=== PATIENT | male | born 1990 | race Caucasian/White ===

== ENCOUNTER 2017-05-06 08:09 | Emergency (ER) | payer SELFPAY ==
[~2017-05-06] VITALS: Ht 180.3 cm; Wt 68.1 kg
[2017-05-06] MEDS ORDERED: AZITHROMYCIN 250 MG TABLET PO ONE (08:45)
[2017-05-06] MEDS ORDERED: CefTRIAXone SODIUM 1 GM/VIAL IM ONE (08:45)
[2017-05-06] MEDS ORDERED: LIDOCAINE HCL/PF 1% 2 ML VIAL IM ONE (08:45)
[2017-05-06 09:35] LABS: APPEARANCE,URINE CLEAR (CLEAR); GLUCOSE, URINE (UA) NEGATIVE (NEGATIVE); KETONES,URINE NEGATIVE (NEGATIVE); LEUKOCYTE ESTERASE ,URINE SMALL (NEGATIVE); OCCULT BLOOD,URINE NEGATIVE (NEGATIVE); PH,URINE 7.5 (5.0-8.0); PROTEIN,URINE NEGATIVE (NEGATIVE)
[2017-05-06 09:36] LABS: ADD UA MICROSCOPIC YES
[2017-05-06 09:49] LABS: RBC,URINE None Seen /HPF (0-2); SQUAMOUS EPITHELIAL CELL,UR Rare /LPF (None Seen)
[2017-05-06 09:56] VITALS: BP 132/76
[2017-05-08 04:30] LABS: GC DNA N.A. AMPLIFY Negative (Negative)
== END 2017-05-06 10:16 | disposition home or self-care (01) ==
LOC: EMS 08:11
DX: N34.2 Other urethritis (principal); F17.210 Nicotine dependence, cigarettes, uncomplicated; F12.10 Cannabis abuse, uncomplicated
CPT/HCPCS: 81001; 87491; 87591; 96372; 99284; J0696; J3490